=== PATIENT | male | born 1940 | race Caucasian/White ===

== ENCOUNTER 2022-04-12 12:30 | Outpatient (RCR) | payer OTHER, SELFPAY ==
--- NOTE | 2022-04-12 16:10 | PT.OPE ---
[facility] [place] [facility] PT [facility] Eval Start: 04/12/22 12:50 Freq: Status: Active Protocol: Document 04/12/22 15:12 CJT (Rec: 04/12/22 16:06 CJT [id number]) E-signed By Duarte Hidalgo PT Physical Therapy Outpatient Evaluation Insurance Information Recert Due Date 07/09/22 Insurance Name Medicare B Medical Diagnosis Z96.659 - presence of unspecified artificial knee joint Treating Diagnosis M25.562 - L knee pain M25.662 - L knee stiffness Z96.652 - L knee replacement Referring Gerson Campos MD Subjective Subjective Pt presents for pre-op L TKA. Was originally scheduled to have R knee completed first but opted to change to L as his functional strength is more limited on L. Pt plans to stay at local SNF following surgery as he lives alone and will not have 24-care in case of an emergency. Plans to attend tehrapy initially at the SNF that he attends but will transfer to our clinic when he returns home. Pain Comments 11/01 Date of Last Physician Visit 03/16/22 Current Work Status Retired Preferred Name Zachary Precautions Weight Bearing Status Weight Bear as Tolerated Therapy Limitations/Systems Review Not Limited Objective Range of Motion R knee AROM: 0-120 L knee AROM: 0-120 Strength B knee strength measured as 5/ 5 MMT B Assessment Assessment/Impression Pt is an 81 year old male who presents 1 week pre-op L TKA. Pt was originally schedule to have his R knee replaced when he realized that his L knee is not capable of taking on the full load of his weight with activities such as step-ups. Pt is scheduled for surgery on 04/19/22 and is planning to attend a SNF following surgery as he lives alone and does not have assistance available. Pt does have family in the area to assist with rides but not 24-hour care if needed. Pt [facility] [place] [facility] with a walk-in shower with 2 grab bars. Has a FWW at home as well as 2 canes. Skilled PT services will be required following surgery to restore L knee function and strength and return t to highest level of function. Recommend sessions 1-2/week for 8-12 weeks. Pt agrees with this plan. All exercises for post-surgical performance were reviewed and printouts were given for I performance. Primary Functional Limitations Walking, standing, steps Plan of Care Rehabilitation Potential Excellent Physical Therapy Goals STG - To be completed in 2-3 weeks: 1. Pt will report consistent use of ice as well as elevation of surgical limb while resting to reduce inflammation and swelling. 2. Pt will demonstrate 90 degrees of knee flexion on surgical limb to reduce risk of contracture development and progress through rehabilitation as expected. 3. Pt to show appropriate use of all AD's with minimal gait deviations and no LOB with all ambulation to reduce risk of falls and restore normal gait mechanics. LTG - To be completed in 8-12 weeks: 1. Pt to be I with HEP so that they may I manage progression of symptoms. 2. Pt will demonstrate 120 degrees knee flexion on surgical limb so that they may descend steps without restrictions in ROM. 3. Pt will perform 10+ squats with good control over medial/ lateral deviation of knees to show improved functional strength to assist with transfers. 4. Pt will demonstrate 5/5 MMT knee flexion/extension of surgical limb to provide greater support to knee joint and allow for ease of ambulation. Treatment Plan/Direct Interventions Electrical Stimulation,Gait Training,Ice/Cold/ Vasopneumatic,Joint Mobilization,Manual Therapy, Neuromuscular Re-ed,Self-Care/ Home Management,Therapeutic Exercises Frequency/Duration 1-2/week for 8-12 weeks Patient Will Be Discharged From Therapy Completion of LTG(s),Skills Plateau,Independent w/HEP, Independently Progressing Evaluation Billing Untimed Code Treatment Minutes 50 PT Eval No Charge No Complexity Low Certification Information Initial Certification Date 04/12/22 Ending Certification Date 07/09/22 Physician Comment/Change Comment or Changes Physician NPI Number #
== END 2023-02-10 23:59 | disposition home or self-care (01) ==
PROVIDERS: PCP Physician Assistant Medical; Visit Provider Orthopaedic Surgery Sports Medicine
DX: M17.11 Unilateral primary osteoarthritis, right knee (principal); Z51.89 Encounter for other specified aftercare
CPT/HCPCS: 97110; 97161

== ENCOUNTER 2022-07-05 15:43 | Outpatient (CLI) | payer OTHER, SELFPAY ==
[2022-07-05 13:57] LABS: Cholesterol* 176 mg/dL (90-199); HDL Cholesterol* 49 mg/dL (>=40); LDL Cholesterol Calculated 99 mg/dL (<100); Triglycerides* 140 mg/dL (40-149)
== END 2022-07-05 15:44 | disposition home or self-care (01) ==
PROVIDERS: PCP Physician Assistant Medical; Visit Provider Physician Assistant Medical
DX: E78.5 Hyperlipidemia, unspecified (principal); E03.9 Hypothyroidism, unspecified; Z12.5 Encounter for screening for malignant neoplasm of prostate
CPT/HCPCS: 80061; 84153; 84443

== ENCOUNTER 2023-08-25 07:15 | Outpatient (CLI) | payer OTHER, SELFPAY | END 2023-08-25 07:16 | disposition home or self-care (01) | LOC: NFLDREF 08-26 07:23 | PROVIDERS: PCP Physician Assistant Medical; Referring Provider Physician Assistant Medical; Visit Provider Physician Assistant Medical | DX: E03.9 Hypothyroidism, unspecified (principal); E78.2 Mixed hyperlipidemia; I10 Essential (primary) hypertension; Z12.5 Encounter for screening for malignant neoplasm of prostate | CPT/HCPCS: 80053; 80061; 84439; 84443; G0103 ==

== ENCOUNTER 2023-11-28 07:15 | Outpatient (CLI) | payer OTHER, SELFPAY | END 2023-11-28 07:16 | disposition home or self-care (01) | LOC: NFLDREF 11-30 07:09 | PROVIDERS: PCP Physician Assistant Medical; Referring Provider Physician Assistant Medical; Visit Provider Physician Assistant Medical | DX: E03.9 Hypothyroidism, unspecified (principal) | CPT/HCPCS: 84443 ==

== ENCOUNTER 2024-09-24 07:56 | Outpatient (CLI) | payer OTHER, SELFPAY | END 2024-09-24 07:57 | disposition home or self-care (01) | LOC: NFLDREF 09-25 | PROVIDERS: PCP Physician Assistant Medical; Referring Provider Physician Assistant Medical; Visit Provider Physician Assistant Medical | DX: E78.2 Mixed hyperlipidemia (principal); I10 Essential (primary) hypertension; E03.9 Hypothyroidism, unspecified; Z12.5 Encounter for screening for malignant neoplasm of prostate | CPT/HCPCS: 80053; 80061; 84443; G0103 ==